=== PATIENT | male | born 1985 | race Caucasian/White ===

== ENCOUNTER 2019-03-31 10:02 | Emergency (ER) | payer SELFPAY ==
[2019-03-31] MEDS: FLUORESCEIN STRIP LEFT EYE (11:07)
[2019-03-31] MEDS: TETRACAINE 0.5% 4 ML OPH LEFT EYE (11:07)
[2019-03-31] MEDS: ERYTHROMYCIN 1 GM OPH OINT LEFT EYE (11:20)
== END 2019-03-31 12:26 | disposition home or self-care (01) ==
LOC: FTE 10:02
DX: S05.92XA Unspecified injury of left eye and orbit, initial encounter (principal); H16.9 Unspecified keratitis; X58.XXXA Exposure to other specified factors, initial encounter; Y92.9 Unspecified place or not applicable
CPT/HCPCS: 99283